=== PATIENT | female | born 1950 | race Caucasian/White ===

== ENCOUNTER 2021-07-01 09:57 | Outpatient (RCR) | payer BC, SELFPAY | END 2021-07-02 23:59 | LOC: NS 09:57 | PROVIDERS: PCP Family Medicine; Referring Provider Registered Nurse; Visit Provider Registered Nurse | DX: Z71.3 Dietary counseling and surveillance (principal); E66.9 Obesity, unspecified; R73.03 Prediabetes; Z68.32 Body mass index [BMI] 32.0-32.9, adult | CPT/HCPCS: 97802 ==

== ENCOUNTER 2021-07-16 09:59 | Outpatient (RCR) | payer BC, SELFPAY | END 2021-08-01 23:59 | LOC: NS 09:59 | PROVIDERS: PCP Family Medicine; Referring Provider Registered Nurse; Visit Provider Registered Nurse | DX: Z71.3 Dietary counseling and surveillance (principal); E66.9 Obesity, unspecified; R73.03 Prediabetes; Z68.32 Body mass index [BMI] 32.0-32.9, adult ==

== ENCOUNTER 2021-09-07 07:59 | Outpatient (RCR) | payer BC, SELFPAY | END 2021-10-01 23:59 | LOC: NS 07:59 | PROVIDERS: PCP Family Medicine; Referring Provider Registered Nurse; Visit Provider Registered Nurse | DX: Z71.3 Dietary counseling and surveillance (principal); E66.9 Obesity, unspecified; Z68.32 Body mass index [BMI] 32.0-32.9, adult; R73.03 Prediabetes | CPT/HCPCS: 97803 ==